=== PATIENT | female | born 1995 | race Caucasian/White ===

== ENCOUNTER 2024-12-15 13:01 | Emergency (ER) | payer BC, SELFPAY ==
[2024-12-15 13:10] VITALS: BP 137/76; PULSE 72; RESP 18; TEMP 36.5; O2SAT 100; BMI 27.4
--- NOTE | 2024-12-15 13:23 | XR_ITS ---
PROCEDURE INFORMATION: Exam: XR Right Hand Exam date and time: 12/15/2024 1:30 PM Age: 29 years old Clinical indication: Injury or trauma; Fall; Other: Pain TECHNIQUE: Imaging protocol: Radiologic exam of the right hand. Views: 3 or more views. COMPARISON: No relevant prior studies available. FINDINGS: Bones/joints: There is no evidence of acute fracture.There is no evidence of malalignment or dislocation. Soft tissues: Normal. IMPRESSION: There is no evidence of acute fracture.There is no evidence of malalignment or dislocation.
--- NOTE | 2024-12-15 13:24 | HMH.EDGENADL ---
Discharge Plan Disposition Patient Disposition: Home, Self-Care Referrals Follow up/Referrals: Orthopedics/Surgery [Provider Group, Orthopedics] - See instructions Referral Note: Will call you for appointment Provider,Referral, MD [Primary Care Provider, Medical] - See instructions Activity Restrictions/Add. Instructions Additional Instructions/Restrictions: May take Tylenol or ibuprofen for pain and swelling. Use ice as well. If any further problems or concerns please return to the ED. [facility] will call you tomorrow for concern over extensor tendon injury. Clinical Impressions Clinical Impression: Finger sprain, Dislocation of finger Instructions Patient Instructions: Finger Dislocation, DI for Finger Sprain Print Language Print Language: Spanish Discharge ED Provider: Devi Anderson General Adult HPI <Gina Johnson (ED), INFORMATION TECHNOLOGY PROGRAM MANAGER - Last Filed: 12/15/24 16:00> General Chief complaint: Extremity Injury, Upper Stated complaint: AO-rt hand pinky jammed Time Seen by Provider: 12/15/24 13:21 Mode of Arrival: Ambulatory Source of Information: Patient Description of Symptoms (Recalled from ER Triage Doc. by RN): patient present to ED for a right pinky injury that occured when the patient slipped on her freshly mopped floors. Right pinky looks deformed upon assessment. History of Present Illness HPI narrative: 29-year-old female presents to the ED for falling on her right hand dislocating her right pinky. Her distal phalange E was dislocated. She has no other injury noted. I did relocate the finger in triage. She has good movement after relocation. Will still do x-ray at patient request. Also had Dr. Anderson evaluate her for tendon injury. Related Data Allergies Allergy/AdvReac Type Severity Reaction Status Date / Time Penicillins Allergy Swelling Verified 12/15/24 13:25 of Lip/Tongue/Throat PFSH <Gina Johnson (ED), INFORMATION TECHNOLOGY PROGRAM MANAGER - Last Filed: 12/15/24 16:00> [facility] Disclaimer: The information contained in this section may have been updated after the patient was seen, as this information can be updated by other users. Social History Smoking Status: Never smoker alcohol intake: never current occupational status: employed Travel in the last 8 weeks?: None <Gina Johnson (ED), INFORMATION TECHNOLOGY PROGRAM MANAGER - Last Filed: 12/15/24 16:00> ROS Obtained: Yes Systems reviewed as appropriate & no additional complaints except as documented Constitutional Constitutional: Reports as per HPI Physical Exam <Gina Johnson (ED), INFORMATION TECHNOLOGY PROGRAM MANAGER - Last Filed: 12/15/24 16:00> General General appearance: alert Head Head exam: normocephalic Eye Eye exam: Present PERRL and EOMI Respiratory Respiratory exam: Present normal lung sounds bilaterally Cardiovascular Cardiovascular exam: Present regular rate and normal rhythm Extremities Exam Extremities exam: Present normal capillary refill and other (Patient's distal phalange initially appeared dislocated off to the side) Neurological Exam Neurological exam: Present alert and oriented X3 Psychiatric Psychiatric exam: Present normal affect Skin Skin exam: Present warm, dry and intact Medical Decision Making <Gina Johnson (ED), INFORMATION TECHNOLOGY PROGRAM MANAGER - Last Filed: 12/15/24 16:00> Medical Records Screening: Per USPSTF and CDC recommendations, given the prevalence of disease in our region, it is our hospital?s policy to screen for HIV and viral Hepatitis for all patients aged 18 and over and those with ongoing risk factors. Andrew Inquiry Pt receiving controlled substance: No Andrew was queried for this patient: No Vital Signs: 12/15/24 13:10 12/15/24 14:47 12/15/24 16:10 Temperature 97.7 F 98.0 F Temperature Source Oral Oral Pulse Rate 85 80 Pulse Rate [Left] 72 Respiratory Rate 18 16 Blood Pressure 132/84 128/70 Blood Pressure [Left Arm] 137/76 Blood Pressure Mean [Left Arm] 96 Blood Pressure Source Automatic Cuff Blood Pressure Source [Left Arm] Automatic Cuff Blood Pressure Position Sitting Blood Pressure Position [Left Arm] Sitting 02 Sat by Pulse Oximetry 100 100 Oxygen Delivery Method Room Air Room Air Room Air Orders (Tests/Meds): ORDERS Category Date Time Status Hand XR right minimum 3 views [XR hand RT min 3V] Stat Exams 12/15/24 13:23 Completed Medical Decision Narrative: patient is a 29-year-old female presenting to the emergency department for evaluation of dislocated pinky after a fall. Patient is hemodynamically stable and nontoxic-appearing upon arrival, afebrile. Differential diagnosis includes dislocated versus fractured pinky. Workup will be conducted with x-ray. Patient's finger was relocated by myself. X-ray showed relocation work. I had Dr. Anderson evaluate for tendon injury. It is questionable whether the tendon is injured or not patient can move the DIP but we called for extensor tendon evaluation follow-up. They will call her tomorrow for that follow-up. I talked to Margarito Leon. Patient did not want the ulnar gutter splint so we placed her in a aluminum splint and wrapped her. She is safe for discharge home. <Devi Anderson MD - Last Filed: 12/15/24 16:13> Vital Signs: 12/15/24 13:10 12/15/24 14:47 12/15/24 16:10 Temperature 97.7 F 98.0 F Temperature Source Oral Oral Pulse Rate 85 80 Pulse Rate [Left] 72 Respiratory Rate 18 16 Blood Pressure 132/84 128/70 Blood Pressure [Left Arm] 137/76 Blood Pressure Mean [Left Arm] 96 Blood Pressure Source Automatic Cuff Blood Pressure Source [Left Arm] Automatic Cuff Blood Pressure Position Sitting Blood Pressure Position [Left Arm] Sitting 02 Sat by Pulse Oximetry 100 100 Oxygen Delivery Method Room Air Room Air Room Air Orders (Tests/Meds): ORDERS Category Date Time Status Hand XR right minimum 3 views [XR hand RT min 3V] Stat Exams 12/15/24 13:23 Completed Medical Decision Narrative: patient is a 29-year-old female presenting to the emergency department for evaluation of dislocated pinky after a fall. Patient is hemodynamically stable and nontoxic-appearing upon arrival, afebrile. Differential diagnosis includes dislocated versus fractured pinky. Workup will be conducted with x-ray. Patient's finger was relocated by myself. X-ray showed relocation work. I had Dr. Anderson evaluate for tendon injury. It is questionable whether the tendon is injured or not patient can move the DIP but we called for extensor tendon evaluation follow-up. They will call her tomorrow for that follow-up. I talked to Margarito Leon. Patient did not want the ulnar gutter splint so we placed her in a aluminum splint and wrapped her. She is safe for discharge home. I was consulted by the ANNMARIE, and we discussed the complexity of problems being addressed. I approved the treatment and management plan for this patient's care in the emergency department, thus performing a substantial portion of the medical decision making. Devi Anderson MD Procedures <Gina Johnson (ED), INFORMATION TECHNOLOGY PROGRAM MANAGER - Last Filed: 12/15/24 16:00> Orthopedic Joint Reduction Joint #1: Side: right (distal phalanx of pinky right, reduced manually) Post-reduction neuro exam: intact Post-reduction vascular: intact Post Reduction X-Ray Obtained: Yes Critical Care <Devi Anderson MD - Last Filed: 12/15/24 16:13> Critical Care Time Critical Care Time: No
--- NOTE | 2024-12-15 14:26 | PC.NURSE ---
Contacted [facility] for ortho consult. Dx: extensor tendon injury to the right pinky. [facility] will call back
[2024-12-15 14:47] VITALS: BP 132/84; PULSE 85; O2SAT 100
--- NOTE | 2024-12-15 16:00 | PC.NURSE ---
Wrapped patientsd hand per JOCELYNE Michaels.
[2024-12-15 16:10] VITALS: BP 128/70; PULSE 80; RESP 16; TEMP 36.7; O2SAT 99
== END 2024-12-15 16:10 | disposition home or self-care (01) ==
PROVIDERS: Emergency Provider Student in an Organized Health Care Education/Training Program
DX: S63.256A Unspecified dislocation of right little finger, initial encounter (principal); W19.XXXA Unspecified fall, initial encounter
CPT/HCPCS: 26770; 73130; 99283